=== PATIENT | male | born 1995 | race Caucasian/White ===

== ENCOUNTER 2019-07-06 22:53 | Emergency (ER) | payer OTHER ==
[2019-07-06] MEDS ORDERED: Ondansetron 4 MG Tab.DIS PO ONE (22:54)
[2019-07-06] MEDS: fentaNYL 100 MCG/2 ML SDV IVPUSH ONE (23:10)
[2019-07-06] MEDS: fentaNYL 100 MCG/2 ML SDV ONE (23:10)
[2019-07-06] MEDS: Lactated Ringers 1,000 ML IV ONE (23:10)
[2019-07-06 23:24] LABS: CHLORIDE,CL 102 mEq/L (98-106); SODIUM,NA 140 mEq/L (136-145)
--- NOTE | 2019-07-06 23:29 | EDM.PDOC ---
ED HPI GENERAL MEDICAL PROBLEM - General Chief Complaint: Abdominal Pain Stated Complaint: abd pain Time Seen by Provider: 07/06/19 23:11 Source of Information: Reports: Patient History Limitations: Reports: No Limitations - History of Present Illness INITIAL COMMENTS - FREE TEXT/NARRATIVE: Patient presents to ER with complaints of right side abdominal pain. Has had nausea/vomiting and diarrhea since awakening this am. Has been afebrile through the day. No blood in his stool. No burning with urination or blood in urine. Has not been able to eat today due to nausea. Rated pain at a 10 on presentation to ER. Onset: Today, Gradual Duration: Hour(s):, Getting Worse Location: Reports: Abdomen Quality: Reports: Sharp, Stabbing Severity: Severe Improves with: Reports: None Associated Symptoms: Reports: Fever/Chills, Loss of Appetite, Nausea/Vomiting. Denies: Chest Pain, Cough, Shortness of Breath Right Lower Abdomen Pain Score (Numeric/FACES): 10 - Related Data Allergies Allergy/AdvReac Type Severity Reaction Status Date / Time No Known Allergies Allergy Verified 07/06/19 22:53 Home Meds: Home Meds . [No Known Home Meds] 07/06/19 [History] Past Medical History - Past Surgical History HEENT Surgical History: Reports: Oral Surgery Social & Family History - Tobacco Use Smoking Status *Q: Never Smoker - Caffeine Use Caffeine Use: Reports: None - Recreational Drug Use Recreational Drug Use: No ED ROS GENERAL - Review of Systems Review Of Systems: See Below Constitutional: Reports: Chills, Malaise, Weakness, Fatigue. Denies: Fever HEENT: Reports: No Symptoms Respiratory: Denies: Shortness of Breath, Cough Cardiovascular: Denies: Chest Pain, Edema, Lightheadedness Endocrine: Denies: Fatigue GI/Abdominal: Reports: Abdominal Pain, Diarrhea, Nausea, Vomiting : Reports: No Symptoms Musculoskeletal: Reports: No Symptoms Skin: Reports: No Symptoms Neurological: Reports: No Symptoms ED EXAM, GI/ABD - Physical Exam Exam: See Below Exam Limited By: No Limitations General Appearance: Alert, WD/WN, Moderate Distress Ears: Normal External Exam, Normal TMs Nose: Normal Inspection, Normal Mucosa, No Blood Throat/Mouth: Normal Inspection, Normal Oropharynx Head: Normocephalic Neck: Normal Inspection, Supple, Non-Tender Respiratory/Chest: No Respiratory Distress, Lungs Clear, Normal Breath Sounds Cardiovascular: Regular Rate, Rhythm GI/Abdominal Exam: Normal Bowel Sounds, Soft, Tender (right lower quadrant/ right flank area) Extremities: Normal Inspection, No Pedal Edema Neurological: Alert, Oriented Skin Exam: Warm, Dry Course - Vital Signs Last Recorded V/S: Last Vital Signs Temp 100.4 F 07/06/19 22:54 Pulse 98 07/06/19 22:54 Resp 16 07/06/19 22:54 BP 110/61 07/06/19 22:54 Pulse Ox 97 07/06/19 22:54 - Orders/Labs/Meds Orders: Active Orders 24 hr Category Date Time Status Abdomen Pelvis w Cont [CT] Stat Exams 07/06/19 23:28 Taken Lactated Ringers [Ringers, Lactated] 1,000 ml Med 07/06/19 23:21 Active IV .BOLUS Medication Orders Lactated Ringer's (Ringers, Lactated) 1,000 mls @ 999 mls/hr IV .BOLUS ONE Stop: 07/07/19 00:21 Last Admin: 07/06/19 23:10 Dose: 999 mls/hr Labs: Laboratory Tests 07/06/19 07/06/19 07/06/19 Range/Units 23:08 23:08 23:10 WBC 9.9 (5.0-10.0) 10^3/uL RBC 5.17 (4.50-6.00) 10^6/uL Hgb 15.4 (14.0-18.0) g/dL Hct 43.4 (40.0-54.0) % MCV 83.9 (82.0-94.0) fL MCH 29.8 (27.0-32.0) pg MCHC 35.5 (33.0-38.0) g/dL RDW Coeff of Cinda 12.0 (11.0-15.0) % Plt Count 217 (150-400) 10^3/uL Neut % (Auto) 89.2 H (35-85) % Lymph % (Auto) 5.3 L (10-55) % [place] % (Auto) 4.9 (0-16) % Eos % (Auto) 0.4 (0-5) % Baso % (Auto) 0.2 (0-3) % Neut # (Auto) 8.80 H (1.80-7.00) 10^3/uL Lymph # (Auto) 0.52 L (1.00-4.80) 10^3/uL [place]wey # (Auto) 0.48 (0.00-0.80) 10^3/uL Eos # (Auto) 0.04 (0.00-0.45) 10^3/uL Baso # (Auto) 0.02 10^3/uL Sodium 140 (136-145) mEq/L Potassium 3.6 (3.5-5.0) mEq/L Chloride 102 (98-106) mEq/L Carbon Dioxide 25 (21-32) mmol/L BUN 17 (7-18) mg/dL Creatinine 1.2 (0.7-1.3) mg/dL Est Cr Clr Drug Dosing 99.12 mL/min Estimated GFR (MDRD) > 60 (>=60) mL/min Glucose 106 H (75-99) mg/dL Calcium 8.9 (8.4-10.1) mg/dL Total Bilirubin 0.6 (0.0-1.0) mg/dL AST 16 (15-37) U/L ALT 24 (12-78) U/L Alkaline Phosphatase 44 L (46-116) U/L C-Reactive Protein 2.9 H (0.2-0.8) mg/dL Total Protein 7.4 (6.4-8.2) g/dL Albumin 4.2 (3.4-5.0) g/dL Amylase 43 (25-115) U/L Urine Color Yellow (YELLOW) Urine Appearance Clear (CLEAR) Urine pH 5.5 (4.5-8.0) Ur Specific [place] >= 1.030 H (1.003-1.020) Urine Protein Negative (NEGATIVE) mg/dL Urine Glucose (UA) Negative (NEGATIVE) mg/dL Urine Ketones 40 H (NEGATIVE) mg/dL Urine Occult Blood Negative (NEGATIVE) Urine Nitrite Negative (NEGATIVE) Urine Bilirubin Small H (NEGATIVE) Urine Urobilinogen 0.2 (0.2-1.0) EU/dL Ur Leukocyte Esterase Negative (NEGATIVE) Meds: Medications Generic Name Dose Route Start Last Admin Trade Name Freq PRN Reason Stop Dose Admin Lactated Ringer's 1,000 mls @ 999 mls/hr 07/06/19 23:21 07/06/19 23:10 Ringers, Lactated IV 07/07/19 00:21 999 mls/hr .BOLUS ONE Administration Discontinued Medications Generic Name Dose Route Start Last Admin Trade Name [place] PRN Reason Stop Dose Admin Fentanyl Confirm 07/06/19 22:46 07/06/19 23:10 Sublimaze Administered 07/06/19 22:47 Not Given Dose 100 mcg .ROUTE .STK-MED ONE Fentanyl 25 mcg 07/06/19 23:06 07/06/19 23:10 Sublimaze IVPUSH 07/06/19 23:07 25 mcg ONETIME ONE Administration Iopamidol 100 ml 07/06/19 23:38 07/06/19 23:46 Isovue-370 (76%) IVPUSH 07/06/19 23:39 100 ml ONETIME ONE Administration - Re-Assessments/Exams Free Text/Narrative Re-Assessment/Exam: 07/07/19 00:17 CT scan of abdomen shows enteritis. Advised patient to push fluids. Zofran as needed for nausea. If diarrhea persists, will have patient collect stool specimens. He verbalizes understanding. Departure - Departure Time of Disposition: 00:19 Disposition: Home, Self-Care 01 Condition: Fair Clinical Impression: Gastroenteritis - Discharge Information *PRESCRIPTION DRUG MONITORING PROGRAM REVIEWED*: No *COPY OF PRESCRIPTION DRUG MONITORING REPORT IN PATIENT EVELYN: No Referrals: PCP,None [Primary Care Provider] - Forms: ED Department Discharge Additional Instructions: 1. Push fluids 2. [place] diet 3. Zofran 4 mg every 6 hours as needed for nausea/vomiting 4. If diarrhea persists, may need to collect stools for further testing 5. Follow up if pain increases, fever persists or have ongoing concerns. - My Orders Last 24 Hours: My Active Orders 07/06/19 23:21 Lactated Ringers [Ringers, Lactated] 1,000 ml IV .BOLUS 07/06/19 23:28 Abdomen Pelvis w Cont [CT] Stat - Assessment/Plan Last 24 Hours: My Active Orders 07/06/19 23:21 Lactated Ringers [Ringers, Lactated] 1,000 ml IV .BOLUS 07/06/19 23:28 Abdomen Pelvis w Cont [CT] Stat
[2019-07-06] MEDS: Iopamidol 755 Mg/ML 100 ML Bottle IVPUSH ONE (23:46)
[2019-07-07] MEDS: Take Home: Ondansetron 4 MG Tab.DIS, 2 Tab Pack PO ONE (00:20)
== END 2019-07-07 00:35 | disposition home or self-care (01) ==
LOC: CC.ED 22:53
DX: K52.9 Noninfective gastroenteritis and colitis, unspecified (principal)
CPT/HCPCS: 36415; 74177; 80053; 81003; 82150; 85025; 86140; 96361; 96374; 99284-25; A9270-GY; J3010; J7120; Q9967

== ENCOUNTER 2021-06-04 18:10 | Emergency (ER) | payer OTHER ==
--- NOTE | 2021-06-04 18:57 | EDM.PDOC ---
ED HPI GENERAL MEDICAL PROBLEM - General Chief Complaint: Lower Extremity Injury/Pain Stated Complaint: R ankle injury Time Seen by Provider: 06/04/21 18:44 Source of Information: Reports: Patient History Limitations: Reports: No Limitations - History of Present Illness INITIAL COMMENTS - FREE TEXT/NARRATIVE: Librado is a 26 year old male who presents to ER with complaints of right ankle pain. Was going down a flight of stairs, unsure if missed the bottom step or just lost his footing and went down. States ankle rolled out and heard a pop. Having significant discomfort at present. Pain with range of motion, bearing weight. Onset: Today, Sudden Duration: Minutes:, Constant Location: Reports: Lower Extremity, Right Quality: Reports: Throbbing Severity: Severe Improves with: Reports: Rest Worsens with: Reports: Movement Context: Reports: Trauma Associated Symptoms: Reports: No Other Symptoms Treatments [employer]: Reports: Cold Therapy Right Ankle Pain Score (Numeric/FACES): 10 - Related Data Allergies Allergy/AdvReac Type Severity Reaction Status Date / Time squash Allergy Anaphylactic Verified 06/04/21 18:12 Shock Home Meds: Home Meds Multivitamin [Multi-Vitamin Daily] 1 tab PO DAILY 06/04/21 [History] Past Medical History - Infectious Disease History Infectious Disease History: Reports: None - Past Surgical History HEENT Surgical History: Reports: Oral Surgery Social & Family History - Family History Family Medical History: No Pertinent Family History - Tobacco Use Tobacco Use Status *Q: Never Tobacco User - Caffeine Use Caffeine Use: Reports: Soda - Recreational Drug Use Recreational Drug Use: No Review of Systems - Review of Systems Review Of Systems: See Below Musculoskeletal: Reports: Leg Pain, Foot Pain, Joint Pain Skin: Reports: Bruising Neurological: Reports: No Symptoms ED EXAM, GENERAL - Physical Exam Exam: See Below Exam Limited By: No Limitations General Appearance: Alert, WD/WN, Mild Distress Extremities: Limited Range of Motion (patient has pain with flexion, extension and rotation of ankle. Swelling noted to lateral malleolar region. Tender to touch.) Course - Vital Signs Last Recorded V/S: Last Vital Signs Temp 97.2 F 06/04/21 18:12 Pulse 86 06/04/21 18:12 Resp 19 06/04/21 18:12 BP 141/93 H 06/04/21 18:12 Pulse Ox 99 06/04/21 18:12 - Orders/Labs/Meds Orders: Active Orders 24 hr Category Date Time Status Ankle Min 3V Rt [CR] Stat Exams 06/04/21 18:21 Ordered - Re-Assessments/Exams Free Text/Narrative Re-Assessment/Exam: 06/04/21 Xrays appear negative. Air splint applied (pre-victoriano). Instructions given. Departure - Departure Time of Disposition: 18:55 Disposition: Home, Self-Care 01 Condition: Good Clinical Impression: Ankle sprain Qualifiers: Encounter type: initial encounter Laterality: right - Discharge Information *PRESCRIPTION DRUG MONITORING PROGRAM REVIEWED*: No *COPY OF PRESCRIPTION DRUG MONITORING REPORT IN PATIENT EVELYN: No Instructions: Ankle Sprain, [id number] Forms: ED Department Discharge Additional Instructions: 1. Rest 2. Ice frequently 20 minutes on, 20 minutes off tonight 3. Ibuprofen 600 mg every 6 hours for pain and swelling 4. Air splint for comfort 5. Weight bear as tolerated 6. Follow up in 5-7 days if ongoing pain Sepsis Event Note (ED) - Evaluation Sepsis Screening Result: No Definite Risk - Focused Exam Vital Signs: Vital Signs Temp Pulse Resp BP Pulse Ox 06/04/21 18:12 97.2 F 86 19 141/93 H 99 - My Orders Last 24 Hours: My Active Orders 06/04/21 18:21 Ankle Min 3V Rt [CR] Stat - Assessment/Plan Last 24 Hours: My Active Orders 06/04/21 18:21 Ankle Min 3V Rt [CR] Stat
== END 2021-06-04 19:00 | disposition home or self-care (01) ==
LOC: CC.ED 18:10
DX: S93.401A Sprain of unspecified ligament of right ankle, initial encounter (principal); X50.1XXA Overexertion from prolonged static or awkward postures, initial encounter
CPT/HCPCS: 73610-RT; 99283-25